=== PATIENT | female | born 2005 | race Caucasian/White ===

== ENCOUNTER 2025-06-06 11:54 | Emergency (ER) | payer OTHER, SELFPAY ==
[2025-06-06 12:15] VITALS: BP 131/82; PULSE 86; RESP 16; TEMP 37.1; O2SAT 99
[2025-06-06 12:49] LABS: EDSTREPNEGPOS1 Negative (Negative)
--- NOTE | 2025-06-06 13:10 | ED.URI ---
HPI - URI/Sore Throat General Chief Complaint: Upper Respiratory Infection Stated Complaint: sore throat Time Seen by Provider: 06/06/25 12:50 Source: patient and RN notes reviewed Mode of arrival: ambulatory Limitations: no limitations History of Present Illness HPI Narrative: 20-year-old female presents Express Care complaining of sore throat for proximally 2-3 days. Patient denies any upper respiratory symptoms, cough, fevers, body aches, chills, nausea, vomiting diarrhea, abdominal pain, chest pain, difficulty breathing, or any other symptoms. Patient data might have been acid reflux and took Pepto-Bismol and Pepcid with no relief. Patient denies any significant past medical history. Related Data Allergies Allergy/AdvReac Type Severity Reaction Status Date / Time No Known Drug Allergies Allergy Unknown Verified 06/06/25 12:14 Review of Systems Review of Systems: CONSTITUTIONAL: Denies fever, chills, body aches, or sweats. EYES: Denies visual changes, redness, or discharge. ENT: Negative for rhinorrhea, congestion, or otalgia. Positive for sore throat. CARDIOVASCULAR: Denies chest pain, palpitations, or edema. RESPIRATORY: Negative for cough or dyspnea. GASTROINTESTINAL: Denies abdominal pain, nausea, vomiting, or diarrhea. GENITOURINARY: Denies dysuria or hematuria. SKIN: Denies rash or itching. MUSCULOSKELETAL: Denies back pain, joint pain, or myalgia. NEUROLOGIC: Denies headache, numbness, or weakness. PSYCHIATRIC: Denies anxiety or depression. All other systems reviewed are negative, except as documented in HPI. FOR[facility]LY [facility] Family History Family History Mother Hypertension Hypothyroid Father Diabetes mellitus Hypercholesteremia Grandparent Arthritis Hypertension Hypothyroid Social History Social History Smoking status: Never smoker Second hand tobacco smoke exposure: Yes Alcohol intake: never Substance use: never Substance use type: does not use Living arrangements: with family Occupation/Education: student Gender identity (if verbalized by the patient): Female Comments At the time of my signature, I reviewed and agree with the nursing past medical, surgical, social, and family history. There is no relevant family history pertinent to the patient complaint. Exam Narrative: GENERAL: This is a well-nourished, well-developed adult, in no apparent distress. They are non ill-appearing, nontoxic appearing. HEAD: normocephalic, atraumatic. EYES: Sclera clear/white. Vision is grossly intact. Conjunctiva normal bilaterally. Extraocular movements intact. EARS: External ears normal, auditory canals clear and without drainage, TMs without erythema or perforation. Hearing grossly intact. NOSE: External nose normal with no obvious nasal discharge, nasal turbinates erythematous, no rhinorrhea. THROAT: Mucous membranes moist, posterior pharynx erythema without swelling, no exudate. Uvula is midline. Postnasal drip present. Tongue is black and coated. NECK: Neck supple, non-tender without lymphadenopathy, masses or thyromegaly. CARDIOVASCULAR: Regular rate and rhythm without murmurs, gallops, or rubs. RESPIRATORY: Clear to auscultation. Breath sounds equal bilaterally. No wheezes, rales, or rhonchi. SKIN: warm, Dry, intact with no suspicious lesions or rash, good texture and turgor. NEURO: awake, alert, and oriented to person, place and time. There were no obvious focal neurologic abnormalities. EXTREMITIES: No joint tenderness, effusion, or edema noted. BACK: Nontender without deformity. Course Course Emergency Course: Portions of this record may have been created with voice recognition software Level of Care: Express Care Visit Vital Signs Vital signs: Vital Signs Temperature 98.8 F 06/06/25 12:15 Pulse Rate 86 06/06/25 12:15 Respiratory Rate 16 06/06/25 12:15 Blood Pressure 131/82 06/06/25 12:15 Pulse Oximetry 99 06/06/25 12:15 Oxygen Delivery Room Air 06/06/25 12:15 Temperature 98.8 F 06/06/25 12:15 Pulse Rate 86 06/06/25 12:15 Respiratory Rate 16 06/06/25 12:15 Blood Pressure 131/82 06/06/25 12:15 Pulse Oximetry 99 06/06/25 12:15 Oxygen Delivery Room Air 06/06/25 12:15 MDM - URI/Sore Throat MDM Narrative Medical decision making narrative: Rapid strep negative. A throat culture is pending. Patient's tongue is by however she has been taking Pepto-Bismol which is likely a side effect from the medication. Patient reports good oral hygiene. Advised patient has resolve on its own. Likely patient has viral pharyngitis. Discussed physical exam findings. Advised supportive measures and signs/symptoms to go to the ER. Pt is appropriate for outpt treatment and f/u. Differential Diagnosis Differential diagnosis: Likely upper respiratory infection, viral infection and pharyngitis (Strep or viral) Lab Data Attestation: I reviewed the patient's lab results. Labs: Lab Results 06/06/25 Range/Units 12:47 POC Grp A Strep Screen Negative (Negative) Discharge Plan Discharge Clinical Impression: Acute viral pharyngitis Patient Disposition: Home Condition: Stable Instructions: Pharyngitis (ED) Additional Instructions: Your rapid strep swab was negative today at [facility]. You will be notified in a few days if the culture comes back positive for strep, and appropriate antibiotics will be called in for you at that time. Your symptoms are likely due to a viral illness, which is not treated with antibiotics. Viral symptoms can be present for up to 7 the 14 days. Take Tylenol or ibuprofen for fever or pain. Rest and stay hydrated. Follow up with your PCP in 3-5 days if symptoms are not improving. Go to the ER immediately if you develop difficulty breathing or swallowing Your black tongue is likely from the Pepto-Bismol you were taking. This should resolve on its own with no issues. Patient Language: Lao Follow-up/Referrals: Corby Olvera MD [Primary Care Provider] - Time of Disposition: 13:03
== END 2025-06-06 13:10 | disposition home or self-care (01) ==
PROVIDERS: PCP Family Medicine Adolescent Medicine
DX: J02.8 Acute pharyngitis due to other specified organisms (principal)
CPT/HCPCS: 87081; 87880; 99212; 99213; G0463